=== PATIENT | male | born 1990 | race Caucasian/White ===

== ENCOUNTER 2017-03-03 11:42 | Emergency (ER) | payer OTHER ==
[2017-03-03 11:59] VITALS: RESP 18; TEMP 97.5
--- NOTE | 2017-03-03 12:41 | ED ---
General Adult HPI - General Chief complaint: Urogenital Stated complaint: INFECTION Time Seen by Provider: 03/03/17 12:02 Source: patient, RN notes reviewed, old records reviewed Mode of arrival: ambulatory Limitations: no limitations - History of Present Illness Initial comments: Chief complaint and history of present illness this is a 26-year-old male here with his ex-girlfriend. The patient had complaints for the past 6 months of prostatitis-type symptoms. He's been checked for GC and chlamydia twice. Urine tests and treated with both ceftriaxone and azithromycin as well as doxycycline. The patient has seen a urologist and he is scheduled for a scoping in 1 month. The patient states he is frustrated because he is continuing to have symptoms. His symptoms include mild discomfort at the base of the penis. No frequency urgency or dysuria. No discharge. No significant discomfort in the perineal area. No fever. Patient states when he took the doxycycline the symptoms went away for approximately one month. - Related Data Previous Rx's Medication Instructions Recorded Ciprofloxacin HCl [Cipro] 500 mg PO Q12HR #60 tablet 03/03/17 Allergies Allergy/AdvReac Type Severity Reaction Status Date / Time No Known Allergies Allergy Verified 03/03/17 12:23 Review of Systems ROS Statement: Those systems with pertinent positive or pertinent negative responses have been documented in the HPI. Review of systems no other complaints other than those noted in the chief complaint. All systems are reviewed. Past medical problems none. Surgeries none. Family history no cancers. ALLERGIES none. Denies smoking, drink alcohol socially. ROS Other: All systems not noted in ROS Statement are negative. Past Medical History Past Medical History: No Reported History History of Any Multi-Drug Resistant Organisms: MRSA Date of last positivie culture/infection: 2006 MDRO Source:: axilla Past Surgical History: No Surgical Hx Reported Past Psychological History: No Psychological Hx Reported Smoking Status: Never smoker Past Alcohol Use History: Occasional, Rare Past Drug Use History: None Reported General Exam - General Exam Comments Initial Comments: General: The patient is awake and alert, complains of discomfort at the base of the scrotum and perineum area ongoing for over 6 months. While on antibiotics for 1 month discomfort went away. Vital signs show temperature 97.5 pulse 64 respiratory rate 18 pulse ox 98% room air blood pressure 152/86 Pupils are equal, round and reactive to light, extra-ocular movements are intact ; there is normal conjunctiva bilaterally. No signs of icterus. Gastrointestinal: Abdomen is nontender. Examination genitalia, normal. Circumcised, no discharge. Nontender testicles. No evidence of any rash or infection. Patient points to the area of discomfort at the base of the scrotum and the perineum as occasional discomfort. No evidence of palpable masses or abscess. Rectal examination that part of the prostate that could be examined was soft, nontender, no nodules. Limitations: no limitations Course Vital Signs 03/03/17 11:54 Temperature 97.5 F L Pulse Rate 64 Respiratory 18 Rate Blood Pressure 152/86 O2 Sat by Pulse 98 Oximetry Medical Decision Making - Medical Decision Making The patient will have urine specimen done for GC and chlamydia. He's been treated twice even though his urine test for GC and chlamydia were negative. We did discuss prostatitis the patient be placed on Cipro. He does have an appointment to follow-up with urology for further examination and evaluation. Disposition Clinical Impression: Unspecified nongonococcal urethritis (SREE) Disposition: HOME SELF-CARE Condition: Fair Instructions: Prostatitis (ED) Additional Instructions: Keep appointment with family physician and urologist for further evaluation of the urethra and prostate. Take Cipro as directed. Call for final lab results in 2 days. No sex until diagnosis has been made. Prescriptions: Ciprofloxacin HCl [Cipro] 500 mg PO Q12HR #60 tablet Referrals: Michael Ortiz MD [Primary Care Provider] - 1-2 days Time of Disposition: 12:49
[2017-03-03 12:57] LABS: Appearance,Urine Clear (Clear); Bilirubin,Urine Negative (Negative); Glucose,Urine (UA) Negative (Negative); Ketones,Urine Negative (Negative); Leukocyte Esterase,Urine Negative (Negative); Nitrite,Urine Negative (Negative); PH, Urine 6.5 (5.0-8.0); Protein,Urine Trace (Negative); Specific Gravity,Urine 1.016 (1.001-1.035); UA Billing (MACRO vs. MICRO) CHEM; Urobilinogen,Urine <2.0 mg/dL (<2.0)
[2017-03-03 13:03] VITALS: BP 143/88; PULSE 57
== END 2017-03-03 13:03 | disposition home or self-care (01) ==
LOC: EC 11:42
DX: N34.1 Nonspecific urethritis (principal)
CPT/HCPCS: 81003; 87086; 87491; 87591; 99284

== ENCOUNTER 2023-05-17 12:03 | Emergency (ER) | payer OTHER ==
[2023-05-17 12:20] VITALS: RESP 18
[2023-05-17] MEDS ORDERED: SODIUM CHLORIDE 0.9% 500 ML 500 ML IV ONE (13:13)
--- NOTE | 2023-05-17 13:17 | ED ---
General Adult HPI - General Chief complaint: Syncope Stated complaint: syncope/vomiting Time Seen by Provider: 05/17/23 12:20 Source: patient, RN notes reviewed, old records reviewed Mode of arrival: ambulatory Limitations: no limitations - History of Present Illness Initial comments: This is a 32-year-old male who presents emergency Department stating that he was at the doctor's office and they performed a hernia exam on him and that did cause some pain in the right lower quadrant and then about 30 seconds after he felt lightheaded and passed out patient was then given some juice and crackers which she ate. his physician stated that his blood pressure was elevated and he suggested he go to the emergency department to be evaluated. Patient got to the emergency department and in the parking lot he got nauseous and vomited. Patient states he feels at his baseline currently he has no chest pain no difficulty breathing no headache no numbness no weakness. Patient states he does pass out quite easily and has done that's throughout his life. Patient states he has been told he has vasovagal syncope. Patient denies any palpitations patient denies any recent fever chills or cough. - Related Data Previous Rx's Medication Instructions Recorded Ciprofloxacin HCl [Cipro] 500 mg PO Q12HR #60 tablet 03/03/17 Allergies Allergy/AdvReac Type Severity Reaction Status Date / Time No Known Allergies Allergy Verified 05/17/23 12:10 Review of Systems ROS Statement: Those systems with pertinent positive or pertinent negative responses have been documented in the HPI. ROS Other: All systems not noted in ROS Statement are negative. Past Medical History Past Medical History: No Reported History History of Any Multi-Drug Resistant Organisms: MRSA Date of last positivie culture/infection: 2006 MDRO Source:: axilla Past Surgical History: No Surgical Hx Reported Past Psychological History: No Psychological Hx Reported Past Alcohol Use History: Occasional, Rare Past Drug Use History: None Reported General Exam - General Exam Comments Initial Comments: GENERAL: Patient is well-developed and well-nourished. Patient is nontoxic and well- hydrated and is in no acute distress. ENT: Neck is soft and supple. No significant lymphadenopathy is noted. Oropharynx is clear. Moist mucous membranes. Neck has full range of motion without eliciting any pain. EYES: The sclera were anicteric and conjunctiva were pink and moist. Extraocular movements were intact and pupils were equal round and reactive to light. Eyelids were unremarkable. PULMONARY: Unlabored respirations. Good breath sounds bilaterally. No audible rales rhonchi or wheezing was noted. CARDIOVASCULAR: There is a regular rate and rhythm without any murmurs gallops or rubs. ABDOMEN: Soft and nontender with normal bowel sounds. SKIN: Skin is clear with no lesions or rashes and otherwise unremarkable. NEUROLOGIC: Patient is alert and oriented x3. Cranial nerves II through XII are grossly intact. Motor and sensory are also intact. Normal speech, volume and content. Symmetrical smile. MUSCULOSKELETAL: Normal extremities with adequate strength and full range of motion. LYMPHATICS: No significant lymphadenopathy is noted PSYCHIATRIC: Normal psychiatric evaluation. Limitations: no limitations Course Vital Signs 05/17/23 05/17/23 05/17/23 12:07 13:27 13:28 Temperature 97.9 F Pulse Rate 62 Pulse Rate [ 54 L 58 L Control Area Operator ] Respiratory 18 16 17 Rate Blood Pressure 134/87 Blood Pressure [Right Arm Standing] Blood Pressure 125/73 [Right Arm Supine] Blood Pressure 130/78 [Right Arm] O2 Sat by Pulse 99 96 99 Oximetry 05/17/23 13:29 Temperature Pulse Rate Pulse Rate [ 64 Control Area Operator ] Respiratory 18 Rate Blood Pressure Blood Pressure 124/84 [Right Arm Standing] Blood Pressure [Right Arm Supine] Blood Pressure [Right Arm] O2 Sat by Pulse 98 Oximetry Medical Decision Making - Medical Decision Making EKG was interpreted by myself. EKG shows sinus bradycardia 50 bpm TX interval 196 QRS is 102 QT interval 462 QTC is 435 patient EKG shows no ST segment elevation Was pt. sent in by a medical professional or institution (, PA, POLYMERIZATION SUPERVISOR, urgent care, hospital, or [facility]...) When possible be specific @ -Dr. Black sent the patient in Did you speak to anyone other than the patient for history (EMS, parent, family, police, friend...)? What history was obtained from this source @ -No Did you review nursing and triage notes (agree or disagree)? Why? @ -I reviewed and agree with nursing and triage notes Were old charts reviewed (outside hosp., previous admission, EMS record, old EKG, old radiological studies, urgent care reports/EKG's, [facility] records)? Report findings @ -No old charts were reviewed Differential Diagnosis (chest pain, altered mental status, abdominal pain women, abdominal pain men, vaginal bleeding, weakness, fever, dyspnea, syncope, headache, dizziness, GI bleed, back pain, seizure, CVA, palpatations, mental health, musculoskeletal)? @ -Differential Syncope: Valvular disease, hypertrophic cardiomyopathy, pulmonary embolism, tamponade, tachycardia, bradycardia, [place], hypovolemia, hemorrhage, dissection, anemia, intracranial hemorrhage, seizure, hypoglycemia, carbon monoxide poisoning, this is not meant to be an all-inclusive list. EKG interpreted by me (3pts min.). @ -As above X-rays interpreted by me (1pt min.). @ -No acute abnormality CT interpreted by me (1pt min.). @ -None done U/S interpreted by me (1pt. min.). @ -None done What testing was considered but not performed or refused? (CT, X-rays, U/S, labs)? Why? @ -None What meds were considered but not given or refused? Why? @ -None Did you discuss the management of the patient with other professionals (kenyetta loera i.e. , PA, POLYMERIZATION SUPERVISOR, lab, RT, psych nurse, neonatal social worker, truck driver teamster, teacher, botanical technical officer, case assistant)? Give summary @ -No Was smoking cessation discussed for >3mins.? @ -No Was critical care preformed (if so, how long)? @ -No Were there social determinants of health that impacted care today? How? (Homelessness, low income, unemployed, alcoholism, drug addiction, transportati on, low edu. Level, literacy, decrease access to med. care, detention, rehab)? @ -No Was there de-escalation of care discussed even if they declined (Discuss DNR or withdrawal of care, Hospice)? DNR status @ -No What co-morbidities impacted this encounter? (DM, HTN, Smoking, COPD, CAD, Cancer, CVA, ARF, Chemo, Hep., AIDS, mental health diagnosis, sleep apnea, morbid obesity)? @ -None Was patient admitted / discharged? Hospital course, mention meds given and route, prescriptions, significant lab abnormalities, going to OR and other pertinent info. @ -She had orthostatics emergency department they were normal. Patient remained at his baseline in the arm had no complaints. Patient's white count was elevated but he had no complaints of any signs of infection his urine was normal. One pack and room to reevaluate the patient he was asymptomatic and was looking home and states that this happens to him quite often. Undiagnosed new problem with uncertain prognosis? @ -No Drug Therapy requiring intensive monitoring for toxicity (Heparin, Nitro, Insulin, Cardizem)? @ -No Were any procedures done? @ -No Diagnosis/symptom? @ -Vasovagal syncope Acute, or Chronic, or Acute on Chronic? @ -Acute Uncomplicated (without systemic symptoms) or Complicated (systemic symptoms)? @ -Complicated Side effects of treatment? @ -No Exacerbation, Progression, or Severe Exacerbation? @ -No Poses a threat to life or bodily function? How? (Chest pain, [place], [place], pneumonia, PE, COPD, DKA, ARF, appy, cholecystitis, CVA, Diverticulitis, Homicidal, Suicidal, threat to staff... and all critical care pts) @ -No - Lab Data Result diagrams: 05/17/23 13:22 05/17/23 13:22 Lab Results 05/17/23 05/17/23 05/17/23 Range/Units 13:22 13:22 13:43 WBC 18.3 H (3.8-10.6) k/uL RBC 5.65 (4.30-5.90) m/uL Hgb 15.8 (13.0-17.5) gm/dL Hct 47.7 (39.0-53.0) % MCV 84.5 (80.0-100.0) fL MCH 28.0 (25.0-35.0) pg MCHC 33.1 (31.0-37.0) g/dL RDW 12.5 (11.5-15.5) % Plt Count 274 (150-450) k/uL MPV 7.8 Neutrophils % 84 % Lymphocytes % 9 % Monocytes % 5 % Eosinophils % 1 % Basophils % 0 % Neutrophils # 15.4 H (1.3-7.7) k/uL Lymphocytes # 1.5 (1.0-4.8) k/uL Monocytes # 1.0 (0-1.0) k/uL Eosinophils # 0.2 (0-0.7) k/uL Basophils # 0.0 (0-0.2) k/uL Sodium 139 (137-145) mmol/L Potassium 4.5 (3.5-5.1) mmol/L Chloride 102 (98-107) mmol/L Carbon Dioxide 25 (22-30) mmol/L Anion Gap 12 mmol/L BUN 20 (9-20) mg/dL Creatinine 0.89 (0.66-1.25) mg/dL Est GFR (CKD-EPI)AfAm >90 (>60 ml/min/1.73 sqM) Est GFR (CKD-EPI)NonAf >90 (>60 ml/min/1.73 sqM) Glucose 113 H (74-99) mg/dL Calcium 9.7 (8.4-10.2) mg/dL Total Bilirubin 0.9 (0.2-1.3) mg/dL AST 28 (17-59) U/L ALT 36 (4-49) U/L Alkaline Phosphatase 47 (38-126) U/L Total Protein 7.7 (6.3-8.2) g/dL Albumin 4.7 (3.5-5.0) g/dL Urine Color Yellow Urine Appearance Turbid (Clear) Urine pH 7.5 (5.0-8.0) Ur Specific [place] 1.024 (1.001-1.035) Urine Protein Trace H (Negative) Urine Glucose (UA) Negative (Negative) Urine Ketones Negative (Negative) Urine Blood Negative (Negative) Urine Nitrite Negative (Negative) Urine Bilirubin Negative (Negative) Urine Urobilinogen <2.0 (<2.0) mg/dL Ur Leukocyte Esterase Negative (Negative) Urine WBC 5 (0-5) /hpf Amorphous Sediment Rare H (None) /hpf Urine Bacteria Rare H (None) /hpf Urine Mucus Occasional H (None) /hpf Disposition Clinical Impression: Vasovagal syncope Disposition: HOME SELF-CARE Condition: Good Instructions (If sedation given, give patient instructions): Syncope (ED) Is patient prescribed a controlled substance at d/c from ED?: No Referrals: Michael Ortiz MD [Primary Care Provider] - 1-2 days Time of Disposition: 14:49
[2023-05-17 13:28] LABS: Basophils % (A) 0 %; Eosinophils # (A) 0.2 k/uL (0-0.7); Eosinophils % (A) 1 %; HCT 47.7 % (39.0-53.0); HGB 15.8 gm/dL (13.0-17.5); Lymphocytes # (A) 1.5 k/uL (1.0-4.8); Lymphocytes % (A) 9 %; MCHC 33.1 g/dL (31.0-37.0); MCV 84.5 fL (80.0-100.0); Mean Platelet Volume 7.8; Monocytes % (A) 5 %; Neutrophils # (A) 15.4 k/uL (1.3-7.7); Neutrophils % (A) 84 %; Platelet Count 274 k/uL (150-450); RBC 5.65 m/uL (4.30-5.90); RDW 12.5 % (11.5-15.5); WBC 18.3 k/uL (3.8-10.6)
[2023-05-17 13:34] VITALS: BP 124/84
[2023-05-17 13:36] LABS: ALT 36 U/L (4-49); AST 28 U/L (17-59); African American GFR (CKD) >90 (>60 ml/min/1.73 sqM); Albumin 4.7 g/dL (3.5-5.0); Alkaline Phosphatase 47 U/L (38-126); Anion Gap 12 mmol/L; Blood Urea Nitrogen 20 mg/dL (9-20); Calcium 9.7 mg/dL (8.4-10.2); Carbon Dioxide 25 mmol/L (22-30); Chloride 102 mmol/L (98-107); Glucose 113 mg/dL (74-99); Non-African American GFR(CKD) >90 (>60 ml/min/1.73 sqM); Potassium 4.5 mmol/L (3.5-5.1); Sodium 139 mmol/L (137-145); Total Bilirubin 0.9 mg/dL (0.2-1.3); Total Protein 7.7 g/dL (6.3-8.2)
[2023-05-17 13:55] LABS: Amorphous Sediment,Urine Rare /hpf; Appearance,Urine Turbid (Clear); Bacteria,Urine Rare /hpf; Bilirubin,Urine Negative (Negative); Blood,Urine Negative (Negative); Color,Urine Yellow; Glucose,Urine (UA) Negative (Negative); Ketones,Urine Negative (Negative); Leukocyte Esterase,Urine Negative (Negative); Mucus,Urine Occasional /hpf; Nitrite,Urine Negative (Negative); PH, Urine 7.5 (5.0-8.0); Protein,Urine Trace (Negative); Specific Gravity,Urine 1.024 (1.001-1.035); Urobilinogen,Urine <2.0 mg/dL (<2.0); WBC,Urine 5 /hpf (0-5)
[2023-05-17 14:56] VITALS: PULSE 60; TEMP 98
== END 2023-05-17 14:54 | disposition home or self-care (01) ==
LOC: EC 12:03
DX: R55 Syncope and collapse (principal); R00.1 Bradycardia, unspecified
CPT/HCPCS: 36415; 80053; 81001; 85025; 93005; 96360; 99284